=== PATIENT | female | born 1995 | race African-American/Black ===

== ENCOUNTER 2020-05-02 23:52 | Emergency (ER) | payer SELFPAY ==
[~2020-05-02] VITALS: Ht 180.3 cm; Wt 79.8 kg
[2020-05-03 00:04] VITALS: Ht 180.3 cm; Wt 79.8 kg
[2020-05-03 02:53] LABS: BASOPHIL % 0.2 % (0-2); PLATELET COUNT 269 x10^3mcL (130-400)
[2020-05-03 02:54] LABS: RED CELL DISTRIBUTION WIDTH 14.8 % (11.5-14.5)
[2020-05-03 03:37] VITALS: BP 131/66
== END 2020-05-03 03:37 | disposition home or self-care (01) ==
LOC: ED 23:52
PROVIDERS: Emergency Medicine
DX: N93.9 Abnormal uterine and vaginal bleeding, unspecified (principal); N83.202 Unspecified ovarian cyst, left side
CPT/HCPCS: Q0092

== ENCOUNTER 2020-05-20 12:32 | Emergency (ER) | payer MEDICAID ==
[~2020-05-20] VITALS: Ht 180.3 cm; Wt 78.5 kg
[2020-05-20 12:41] VITALS: Ht 180.3 cm; Wt 78.5 kg
[2020-05-20 13:56] VITALS: BP 127/70
== END 2020-05-20 13:56 | disposition home or self-care (01) ==
LOC: ED 12:32
DX: N92.0 Excessive and frequent menstruation with regular cycle (principal); N93.9 Abnormal uterine and vaginal bleeding, unspecified